=== PATIENT | female | born 1965 | race Two or more races ===

== ENCOUNTER 2021-10-31 14:38 | Outpatient (CLI) | payer OTHER, SELFPAY ==
--- NOTE | 2021-10-31 14:50 | XR_ITS ---
WS: [id number] SCREENING DEXA SCAN Heavy CLINICAL INFORMATION: SCREENING COMPARISON: None. FINDINGS: The L1-L4 bone mineral density measures 1.082 g/cm2. This corresponds to a T score score of -0.8 and Z score of 0.3. Left femoral neck bone mineral density measures 0.792 g/cm2. This corresponds to a T score of -1.7 an d Z score of -0.8. Right femoral neck bone mineral density measures 0.818 g/cm2. This corresponds to a T score -1.5of an d Z score of -0.6. Mean femoral neck bone mineral density measures 0.805 g/cm2. This corresponds to a T score of -1.6 an d Z score of -0.7. XR/XR DEXA axial skeleton* 81073 IMPRESSION: Osteopenia in the femoral necks. Normal bone mineralization lumbar spine. Patient's FRAX calculated 10 year probability for major osteoporotic fracture i s 10.0 % and osteoporotic hip fracture is 1.6%.
== END 2021-10-31 14:39 | disposition home or self-care (01) ==
LOC: RAD 14:41
PROVIDERS: Visit Provider Nurse Practitioner
DX: Z13.820 Encounter for screening for osteoporosis (principal); M85.88 Other specified disorders of bone density and structure, other site
CPT/HCPCS: 77080

== ENCOUNTER → 2021-12-21 08:40 | Outpatient (BNVA) | payer OTHER, SELFPAY | PROVIDERS: PCP Nurse Practitioner; Visit Provider Internal Medicine Rheumatology | DX: M19.041 Primary osteoarthritis, right hand (principal); M19.042 Primary osteoarthritis, left hand; Z79.899 Other long term (current) drug therapy; Z86.19 Personal history of other infectious and parasitic diseases | CPT/HCPCS: 82306; 85651; 86140; 86200; 99204 ==

== ENCOUNTER → 2021-12-28 08:44 | Outpatient (BNVA) | payer OTHER, SELFPAY | PROVIDERS: PCP Nurse Practitioner; Referring Provider Nurse Practitioner; Visit Provider Orthopaedic Surgery | DX: M65.332 Trigger finger, left middle finger (principal); M65.331 Trigger finger, right middle finger; M65.341 Trigger finger, right ring finger | CPT/HCPCS: 20550; 99203; J0702; J3490 ==

== ENCOUNTER 2022-02-02 06:02 | Day surgery (SDC) | payer OTHER, SELFPAY ==
[2022-02-01 11:00] VITALS: BMI 26.0
[2022-02-02 06:30] VITALS: BP 178/92; PULSE 71; RESP 18; TEMP 36.5; O2SAT 98
--- NOTE | 2022-02-02 06:57 | P.HP_ITS ---
Same Day Surgery H&P Indication for Procedure/HPI DATE OF PROCEDURE: February 02, 2022 CHIEF COMPLAINT/INDICATIONFOR SURGICAL PROCEDURE: Right long and ring finger trigger finger here for trigger finger PREOP DIAGNOSIS: Trigger finger Right long and ring finger PLANNED PROCEDURE: Operation Date: 02/02/22 07:00 Proposed Procedures p trigger finger release right ring and long finger/ 11246,M65.331,M65.341(Right) - Oniel Rivera MD 56-year-old female with 1 year history of progressive catching and locking right long and ring finger. Treated with injections on December 28 without improvement. Here for elective long and ring finger trigger finger release ROS Denies any numbness or tingling right hand Medications/Allergies* Home Medications Medication Instructions Recorded Confirmed Type calcium carb-ergocalciferol (vit 2 tab PO DAILY 02/01/22 02/02/22 History D2) 600 mg calcium-200 unit tablet multivitamin 1 tab PO DAILY 02/01/22 02/02/22 History Allergies/Adverse Reactions Allergy/AdvReac Type Severity Reaction Status Date / Time codeine Allergy Unknown unknown Verified 12/28/21 08:48 Penicillins Allergy Unknown Unknown Verified 12/28/21 08:48 Sulfa (Sulfonamide Allergy Unknown unknown Verified 12/28/21 08:48 Antibiotics) meloxicam Allergy ALGY-Rash Verified 02/01/22 10:55 Pertinent History/Comorbid Conditions* Medical History (Updated 12/28/21 @ 09:20 by Oniel Rivera MD) Asthma Hyperlipidemia Inflammatory arthritis Osteoarthritis involving multiple joints on both sides of body Osteoarthritis of hands, bilateral Prediabetes Seasonal allergies Social History Smoking and tobacco status: never smoked Alcohol intake: current Alcohol intake frequency: few times a month Pertinent Exam Findings alert, oriented x 3, clear to auscultation bilaterally, regular rate & rhythm and operative site marked The patient has tenderness over the A1 pulleys of the right long and ring finger. Crepitations are felt over the A1 pulleys of the digits are brought through a full range of motion. Recommendations Surgery/Procedure today Other Plans: I discussed surgical release of trigger fingers with the patient. I told them this has a very high risk of success. I discussed risk of continued pain, stiffness, and unlikely continued triggering. I discussed the close proximity's of blood vessels and nerves with the patient, this will be done in the operating room under loupe magnification. I made them aware unlikely anesthetic risks. They're aware of nonoperative options and seemed expressed good understanding and willingness to proceed. Coding Level of Care Code Acute Medical File Clerk for Sita Zarate
[2022-02-02] MEDS: sodium chloride 0.9% 1,000 ML 30 ML IV (06:59)
[2022-02-02] MEDS: ceFAZolin 2,000 MG in sodium chloride 0.9% (plus) 50 ML 100 MG IV (07:00)
--- NOTE | 2022-02-02 07:24 | ANES.PREANE2 ---
Pre-Anesthetic Assessment Height/Weight: Height 1.51 m Weight 59.421 kg Temp Pulse Resp BP Pulse Ox 97.7 F 71 18 178/92 98 02/02/22 06:30 02/02/22 06:30 02/02/22 06:30 02/02/22 06:30 02/02/22 06:30 Preop Diagnosis: Trigger finger Right long and ring finger Operation Date: 02/02/22 07:00 Proposed Procedures p trigger finger release right ring and long finger/ 60471,M65.331,M65.341(Right) - Oniel Rivera MD Familial anesthetic complications: none Was Beta Nenita taken within 24 hours: N/A Was Clonidine taken within 24 hours: N/A Last intake: Intake Last Liquid Date 02/01/22 Last Liquid Time 18:00 Last Solid Date 02/01/22 Last Solid Time 20:00 Social No alcohol and No tobacco Exam alert, oriented x 3, clear to auscultation bilaterally and regular rate & rhythm Airway Submandibular: within normal limits Cervical ROM: within normal limits Mallampati: Class II History/ROS No significant history except as noted Musc/skel Osteoarthritis/DJD Anesthetic Plan ASA status: 1 Anesthesia: MAC Medications/Allergies Home Medications Medication Instructions Recorded Confirmed Last Taken Type calcium carb-ergocalciferol (vit 2 tab PO DAILY 02/01/22 02/02/22 02/01/22 History D2) 600 mg calcium-200 unit tablet multivitamin 1 tab PO DAILY 02/01/22 02/02/22 02/01/22 History hydrocodone 5 mg-acetaminophen 325 1 tab PO Q4H #10 tab 02/02/22 Unknown Rx mg tablet Allergies Allergy/AdvReac Type Severity Reaction Status Date / Time codeine Allergy Unknown unknown Verified 12/28/21 08:48 Penicillins Allergy Unknown Unknown Verified 12/28/21 08:48 Sulfa (Sulfonamide Allergy Unknown unknown Verified 12/28/21 08:48 Antibiotics) meloxicam Allergy ALGY-Rash Verified 02/01/22 10:55 Current Medications Generic Name Dose Route Start Last Admin Trade Name Freq PRN Reason Stop Dose Admin Sodium Chloride 1,000 mls @ 30 mls/hr 02/02/22 06:45 02/02/22 06:59 Sodium Chloride 0.9% IV 02/03/22 06:44 30 mls/hr .Q24H ANDREW Administration Cefazolin Sodium 2,000 mg/ 50 mls @ 100 mls/hr 02/02/22 07:00 02/02/22 07:08 Sodium Chloride IV 02/02/22 07:29 Infused ONCE ONE Infusion PFSH Anesthesia Medical History Asthma Hyperlipidemia Inflammatory arthritis Osteoarthritis involving multiple joints on both sides of body Osteoarthritis of hands, bilateral Prediabetes Seasonal allergies Social History Smoking and tobacco status: never smoked Alcohol intake: current Alcohol intake frequency: few times a month Data Anesthesia Cardiac Studies: No Data to Display
--- NOTE | 2022-02-02 07:43 | PM.OP ---
Operative Report Date of procedure: February 02, 2022 Pre-op diagnosis: Preop Diagnosis Trigger finger Right long and ring finger Post-op diagnosis: same Procedure done: Trigger finger release right long and right ring finger Surgeon: Oniel Rivera Anesthesia: Nerve Block (Porter block) Estimated blood loss (mL): 2 Tourniquet time (min): 20 Findings: There is degeneration of the A1 pulleys of the long and ring finger but the tendons at that level appeared healthy Condition: stable Disposition: PACU Procedure: The patient's hand was prepped in the usual fashion. A timeout was performed. A transverse incision was made over the level of a 1 kenisha in the palm over a distance of approximately a centimeter over the ring finger under loupe magnification blunt dissection was accomplished down to the A1 kenisha. With adequate visualization a scalpel was used to divide the central 8 mm of that structure. Blunt scissors were then used to extend the release approximately 5 mm proximally and 5 mm distally. Tendons were pulled the road and inspected to assure there health. A transverse incision was made over the level of a 1 kenisha in the palm over a distance of approximately a centimeter over the ring finger under loupe magnification blunt dissection was accomplished down to the A1 kenisha. With adequate visualization a scalpel was used to divide the central 8 mm of that structure. Blunt scissors were then used to extend the release approximately 5 mm proximally and 5 mm distally. Tendons were pulled the road and inspected to assure there health. Skin edges over both incisions were each infiltrated with 3 cc of 0.5%n Marcaine. The skin edges were closed with 3-0 Prolene compressive dressings were applied.
[2022-02-02 07:44] VITALS: BP 149/80; PULSE 60; RESP 16; TEMP 36.3; O2SAT 99
[2022-02-02 07:50] VITALS: BP 166/88; PULSE 65; RESP 18; O2SAT 98
[2022-02-02 07:55] VITALS: BP 176/90; PULSE 63; RESP 18; TEMP 36.2; O2SAT 99
[2022-02-02 08:21] VITALS: BP 188/95; PULSE 65; RESP 18; TEMP 36.2; O2SAT 99
[2022-02-02] MEDS: HYDROcodone-acetaminophen 5-325 mg Tablet 1 TAB PO (08:41)
--- NOTE | 2022-02-02 16:36 | ANE.PACU2 ---
Inpatient post-anesthesia follow up: Airway intact: Yes Vital signs: Temperature 97.2 F Pulse Rate 65 Respiratory Rate 18 Blood Pressure 188/95 Pulse Oximetry 99 Oxygen Delivery Me thod Room Air Oxygen Flow Rate Fraction of Inspir ed Oxygen Hydration adequate: Yes Nausea and vomiting: No Pain level: 1 Mental status: Baseline
== END 2022-02-02 09:00 | disposition home or self-care (01) ==
PROVIDERS: PCP Nurse Practitioner; Visit Provider Orthopaedic Surgery
PROC: (CPT 26055; principal; 2022-02-02 07:00)
DX: M65.331 Trigger finger, right middle finger (principal); M65.341 Trigger finger, right ring finger; E78.5 Hyperlipidemia, unspecified
CPT/HCPCS: 26055 ×2; J2370; J2704; J3010; J3490; J7030

== ENCOUNTER → 2022-02-07 08:55 | Outpatient (BNVA) | payer OTHER, SELFPAY | PROVIDERS: PCP Nurse Practitioner; Visit Provider Nurse Practitioner Family | DX: Z47.89 Encounter for other orthopedic aftercare (principal); Z98.890 Other specified postprocedural states | CPT/HCPCS: 99024 ==

== ENCOUNTER → 2022-02-16 08:50 | Outpatient (BNVA) | payer OTHER, SELFPAY | PROVIDERS: PCP Nurse Practitioner; Visit Provider Nurse Practitioner Family | DX: Z98.890 Other specified postprocedural states (principal) | CPT/HCPCS: 99024 ==

== ENCOUNTER → 2022-05-31 14:57 | Outpatient (BNVA) | payer OTHER, SELFPAY | PROVIDERS: PCP Nurse Practitioner; Referring Provider Nurse Practitioner; Visit Provider Orthopaedic Surgery | DX: M65.332 Trigger finger, left middle finger (principal); M65.342 Trigger finger, left ring finger | CPT/HCPCS: 99213 ==

== ENCOUNTER 2022-08-10 07:28 | Day surgery (SDC) | payer OTHER, SELFPAY ==
[2022-08-09 10:34] VITALS: BMI 27.3
[2022-08-10 07:39] VITALS: BP 140/97; PULSE 72; RESP 18; TEMP 36.4; O2SAT 99
[2022-08-10] MEDS: sodium chloride 0.9% 1,000 ML 30 ML IV (08:00)
--- NOTE | 2022-08-10 08:03 | SUR.PREOP ---
0801 called into OR ROOM 5 regarding pt's allergy to pcn, dr Shipley ordered cefazolin and states that her reaction is rash and tightness in chest and breathing issues, DR SHIPLEY stated that they will give cefazolin in room
--- NOTE | 2022-08-10 08:14 | ANES.PREANE2 ---
Pre-Anesthetic Assessment Height/Weight: Height 1.52 m Weight 63.503 kg Temp Pulse Resp BP Pulse Ox O2 Del Method 97.6 F 72 18 140/97 99 08/10/22 07:39 08/10/22 07:39 08/10/22 07:39 08/10/22 07:39 08/10/22 07:39 08/10/22 07:39 Preop Diagnosis: Left long and ring trigger finger Operation Date: 08/10/22 09:10 Proposed Procedures p trigger finger release left long and ring fingers/ 78127 M65.342(Left) - Oniel Rivera MD Familial anesthetic complications: None Was Beta Nenita taken within 24 hours: N/A Was Clonidine taken within 24 hours: N/A Last intake: Intake Last Liquid Date 08/09/22 Last Liquid Time 18:00 Last Solid Date 08/09/22 Last Solid Time 18:00 Social No alcohol and No tobacco Exam alert, oriented x 3, clear to auscultation bilaterally and regular rate & rhythm Airway Mallampati: Class I Dentition: full Pulmonary Asthma (seasonal - last inhaler use a few weeks ago) Anesthetic Plan ASA status: 2 Anesthesia: MAC Risk of > 500 ml blood loss (7ml/kg in children): No Medications/Allergies Home Medications Medication Instructions Recorded Confirmed Last Taken Type calcium carb-ergocalciferol (vit 2 tab PO DAILY 02/01/22 08/09/22 06/07/22 History D2) 600 mg calcium-200 unit tablet multivitamin 1 tab PO DAILY 02/01/22 08/09/22 08/02/22 History Allergies Allergy/AdvReac Type Severity Reaction Status Date / Time codeine Allergy Intermediate ALGY-Rash Verified 08/10/22 07:37 Penicillins Allergy Unknown Unknown Verified 08/10/22 07:37 Sulfa (Sulfonamide Allergy Unknown unknown Verified 08/10/22 07:37 Antibiotics) meloxicam Allergy ALGY-Rash Verified 08/10/22 07:37 Current Medications Generic Name Dose Route Start Last Admin Trade Name Freq PRN Reason Stop Dose Admin Sodium Chloride 1,000 mls @ 30 mls/hr 08/10/22 07:45 08/10/22 08:00 Sodium Chloride 0.9% IV 08/11/22 07:44 30 mls/hr .Q24H ANDREW Administration PFSH Anesthesia Medical History Asthma Hyperlipidemia Inflammatory arthritis Osteoarthritis involving multiple joints on both sides of body Osteoarthritis of hands, bilateral Prediabetes Seasonal allergies Social History Smoking and tobacco status: former smoker Alcohol intake: current Alcohol intake frequency: few times a month Data Anesthesia Cardiac Studies: No Data to Display
--- NOTE | 2022-08-10 09:55 | W.PM.OPSFHP ---
Same Day Surgery H&P Indication for Procedure/HPI DATE OF PROCEDURE: August 10, 2022 CHIEF COMPLAINT/INDICATIONFOR SURGICAL PROCEDURE: Left long and ring finger trigger finger PREOP DIAGNOSIS: Left long and ring trigger finger PLANNED PROCEDURE: Operation Date: 08/10/22 09:10 Proposed Procedures p trigger finger release left long and ring fingers/ [id number] M65.342(Left) - Oniel Rivera MD 56-year-old female with triggering in the left long and ring finger finger early this year. She underwent an injection in the long finger A1 kenisha without significant improvement. She describes difficulty reaching a cup Cleek clenched fist and can only forcibly extend her long finger with a palpable pop at the base of her long finger. She describes difficulty with gripping and grasping. She is here for a left long ring finger trigger finger release Medications/Allergies* Home Medications Medication Instructions Recorded Confirmed Type calcium carb-ergocalciferol (vit 2 tab PO DAILY 02/01/22 08/09/22 History D2) 600 mg calcium-200 unit tablet multivitamin 1 tab PO DAILY 02/01/22 08/09/22 History Allergies/Adverse Reactions Allergy/AdvReac Type Severity Reaction Status Date / Time codeine Allergy Intermediate ALGY-Rash Verified 08/10/22 07:37 Penicillins Allergy Unknown Unknown Verified 08/10/22 07:37 Sulfa (Sulfonamide Allergy Unknown unknown Verified 08/10/22 07:37 Antibiotics) meloxicam Allergy ALGY-Rash Verified 08/10/22 07:37 Current Medications: Generic Name Dose Route Start Last Admin Trade Name Freq PRN Reason Stop Dose Admin Sodium Chloride 1,000 mls @ 30 mls/hr 08/10/22 07:45 08/10/22 08:00 Sodium Chloride 0.9% IV 08/11/22 07:44 30 mls/hr .Q24H ANDREW Administration Pertinent History/Comorbid Conditions* Medical History (Updated 12/28/21 @ 09:20 by Oniel Rivera MD) Asthma Hyperlipidemia Inflammatory arthritis Osteoarthritis involving multiple joints on both sides of body Osteoarthritis of hands, bilateral Prediabetes Seasonal allergies Social History Smoking and tobacco status: former smoker Alcohol intake: current Alcohol intake frequency: few times a month Pertinent Exam Findings procedure specific exam findings HEAD: Normocephalic/atraumatic. NECK: Soft supple nontender. HEART: Normal heart sounds, regular rhythm. CHEST: Clear to auscultation. ABDOMEN: Soft nontender nondistended.? Left ring and long trigger finger She has tenderness over the left long and ring finger A1 pulleys. She cannot quite reach a complete clenched fist with the long and ring finger but can completely extend them. No triggering is identified over the A1 pulleys Sensation is intact to light touch Recommendations Surgery/Procedure today Coding Level of Care Code Acute Automotive Fuel Injection Servicer for Sita Zarate
[2022-08-10] MEDS: ceFAZolin 2,000 MG in sodium chloride 0.9% (plus) 50 ML 100 MG IV (10:10)
--- NOTE | 2022-08-10 10:49 | PM.OP ---
Operative Report Date of procedure: August 10, 2022 Pre-op diagnosis: Preop Diagnosis Left long and ring trigger finger Post-op diagnosis: same Procedure done: Right long and ring finger trigger finger release Pathology: none sent Surgeon: Oniel Rivera Anesthesia: MAC and Local Estimated blood loss (mL): 2 Tourniquet time (min): 8 Complications: None Findings: No masses or degeneration are seen at the A1 pulleys of the left long or ring finger Condition: stable Disposition: PACU Procedure: The patient's hand was prepped in the usual fashion. Sedation was provided by anesthesia. Proximately 2 cm were made in the cyst skin overlying the A1 kenisha of both the long and ring fingers. The arm was exsanguinated and tourniquet inflated 250 mm. A timeout was performed. I transverse incision was made over the level of a 1 kenisha in the palm in line with the distal flexion crease over the long finger. Over a distance of approximately a centimeter and a half. Under loupe magnification blunt dissection was accomplished down to the A1 kenisha. With adequate visualization a scalpel was used to divide the central 8 mm of that structure. Blunt scissors were then used to extend the release approximately 5 mm proximally and 5 mm distally. A second centimeter and a half incision was made over the ring finger along the flexion crease in an identical fashion the A1 kenisha of the ring finger released. The skin edges were closed with 3-0 Prolene compressive dressings were applied.
[2022-08-10 10:53] VITALS: BP 134/75; PULSE 65; RESP 18; TEMP 36.3; O2SAT 100
[2022-08-10 10:55] VITALS: BP 143/75; PULSE 69; RESP 16; O2SAT 100
[2022-08-10 11:01] VITALS: BP 146/79; PULSE 67; RESP 18; TEMP 36.2; O2SAT 100
[2022-08-10 11:04] VITALS: BP 146/80; PULSE 70; RESP 17; TEMP 36.6; O2SAT 99
--- NOTE | 2022-08-10 11:12 | SUR.PHASEII ---
ROM , SENSATION AND GOOD CAP REFILL OF FINGERS LEFT HAND.
[2022-08-10 11:45] VITALS: BP 148/96; PULSE 65; RESP 14; TEMP 36.6; O2SAT 97
--- NOTE | 2022-08-10 12:53 | ANE.PACU2 ---
Inpatient post-anesthesia follow up: Airway intact: Yes Vital signs: Temperature 98 F Pulse Rate 70 Respiratory Rate 17 Blood Pressure 146/80 Pulse Oximetry 99 Oxygen Delivery Me thod Room Air Oxygen Flow Rate Fraction of Inspir ed Oxygen Hydration adequate: Yes Nausea and vomiting: No Pain level: 1 Mental status: Baseline
== END 2022-08-10 12:15 | disposition home or self-care (01) ==
PROVIDERS: PCP Nurse Practitioner; Visit Provider Orthopaedic Surgery
PROC: (CPT 26055; principal; 2022-08-10 09:10)
DX: M65.332 Trigger finger, left middle finger (principal); M65.342 Trigger finger, left ring finger; J45.909 Unspecified asthma, uncomplicated; E78.5 Hyperlipidemia, unspecified; Z87.891 Personal history of nicotine dependence
CPT/HCPCS: 26055 ×2; J0690; J2250; J2704; J3010; J3490; J7030

== ENCOUNTER → 2022-08-15 09:28 | Outpatient (BNVA) | payer OTHER, SELFPAY | PROVIDERS: PCP Nurse Practitioner; Visit Provider Nurse Practitioner Family | DX: Z98.890 Other specified postprocedural states (principal) | CPT/HCPCS: 99024 ==

== ENCOUNTER → 2022-08-22 07:54 | Outpatient (BNVA) | payer OTHER, SELFPAY | PROVIDERS: PCP Nurse Practitioner; Visit Provider Nurse Practitioner Family | DX: Z98.890 Other specified postprocedural states (principal) | CPT/HCPCS: 99024; 99213 ==

== ENCOUNTER 2022-10-17 11:46 | Emergency (ER) | payer OTHER, SELFPAY ==
[2022-10-17 11:55] VITALS: BP 164/97; PULSE 75; RESP 18; TEMP 36.7; O2SAT 98
--- NOTE | 2022-10-17 13:51 | W.ED.SOB ---
HPI - SOB/Dyspnea General: Chief Complaint: Shortness of Breath/Dyspnea Stated Complaint: sob Time Seen by Provider: 10/17/22 13:36 Source: patient Mode of arrival: ambulatory Limitations: no limitations History of Present Illness: HPI Narrative: This 57-year-old female with a history of asthma presents to the ER with intermittent shortness of breath that has been going on for few weeks now. Patient reports having allergy symptoms few weeks ago and since then [facility] during which she was prescribed Z-Jorge Luis and albuterol treatment, followed by Medrol Dosepak and doxycycline. Currently, she does breathing treatments every 6 hours which tends to help but usually in the evenings, her shortness of breath worsens. She is a non-smoker, denies fever and has no other systemic symptoms. Oxygen saturation is normal on room air. Review of Systems General: Reports: 10 or more systems reviewed and unremarkable except in HPI and below Resp: Reports: dyspnea (Intermittent), non-productive cough and wheezing (Intermittent) [facility] PFSH: Medical History Asthma Hyperlipidemia Inflammatory arthritis Osteoarthritis involving multiple joints on both sides of body Osteoarthritis of hands, bilateral Prediabetes Seasonal allergies Social History Smoking and tobacco status: former smoker Alcohol intake: current Alcohol intake frequency: few times a month Physical Exam Const: COMMON NORMALS: no acute distress and no limitations HENMT: COMMON NORMALS: normocephalic HEAD & SCALP: normocephalic Chest: COMMONS NORMALS: normal inspection of the chest Resp: COMMON NORMALS: normal respiratory effort, No retractions, No use of accessory muscles and clear to auscultation bilaterally AUSCULTATION: clear to auscultation bilaterally Cardio: COMMON NORMALS: regular rate, regular rhythm and No murmurs present (Cardio) RATE: regular rate RHYTHM: regular rhythm GI: COMMON NORMALS: Normal to inspection, nondistended, normoactive bowel sounds present and non-tender Extremity: GENERAL: Yes normal exam except as noted Course Vital Signs: Vital signs: Vital Signs Temperature 98.1 F 10/17/22 11:55 Pulse Rate 69 10/17/22 16:54 Respiratory Rate 18 10/17/22 11:55 Blood Pressure 156/93 10/17/22 16:54 Pulse Oximetry 100 10/17/22 16:54 Oxygen Delivery Me thod 10/17/22 16:54 MDM - SOB/Dyspnea Medical Decision Making Medical decision making: Patient has a history of asthma and reports having allergy type symptoms few weeks ago. She uses her inhalers and has been treated with antibiotics and steroids. She presents to the ER stating that during the evenings, her symptoms seem to get worse. Otherwise, patient appears clinically stable. Chest is clear on auscultation and oxygen saturation is 100% on room air. She is in no acute distress and completed blood tests are unremarkable. Chest x-ray is negative for any acute intracranial process. There is no indication to admit her at this time, she was advised to continue her inhaler treatments and finish out the course of steroids she has. She was given a prescription for Tessalon Perles and advised to follow-up with her primary care provider. Return instructions provided. Lab Data 10/17/22 14:50 10/17/22 14:50 Labs/Radiology: Radiology Impressions Chest X-Ray 10/17/22 14:18 IMPRESSION: Unremarkable frontal portable chest x-ray. Laboratory Results WBC 10.9 10^3/uL (4.0-10.0) H 10/17/22 14:50 RBC 4.59 10^6/uL (4.1-5.3) 10/17/22 14:50 Hgb 14.4 g/dL (11.5-15.3) 10/17/22 14:50 Hct 44.0 % (37.0-47.0) 10/17/22 14:50 MCV 95.9 fl (81-99) 10/17/22 14:50 MCH 31.4 pg (28.0-34.0) 10/17/22 14:50 MCHC 32.7 g/dL (30.0-36.0) 10/17/22 14:50 RDW 12.5 % (12.1-15.1) 10/17/22 14:50 Plt Count 351 10^3/cmm (130-400) 10/17/22 14:50 MPV 9.2 fL (7.4-10.4) 10/17/22 14:50 Neut % (Auto) 61.9 % 10/17/22 14:50 Lymph % (Auto) 30.6 % 10/17/22 14:50 Stark % (Auto) 5.8 % 10/17/22 14:50 Eos % (Auto) 0.8 % 10/17/22 14:50 Baso % (Auto) 0.5 % 10/17/22 14:50 Neut # (Auto) 6.74 10^3/uL (1.8-7.7) 10/17/22 14:50 Lymph # (Auto) 3.3 10^3/uL (0.8-4.8) 10/17/22 14:50 Stark # (Auto) 0.6 10^3/uL (0.2-0.9) 10/17/22 14:50 Eos # (Auto) 0.1 10^3/uL (0.0-0.8) 10/17/22 14:50 Baso # (Auto) 0.1 10^3/uL (0.0-0.1) 10/17/22 14:50 Nucleated RBC % (auto) 0 % 10/17/22 14:50 Nucleated RBCs # 0.0 /100WBC 10/17/22 14:50 Sodium 140 mmol/L (136-145) 10/17/22 14:50 Potassium 4.2 mmol/L (3.5-5.1) 10/17/22 14:50 Chloride 103 mmol/L (98-107) 10/17/22 14:50 Carbon Dioxide 27 mmol/L (22-29) 10/17/22 14:50 Anion Gap 14.2 (5-19) 10/17/22 14:50 BUN 14 mg/dL (6-20) 10/17/22 14:50 Creatinine 0.7 mg/dL (0.5-0.9) 10/17/22 14:50 GFR Calculation 85.6 mL/min (90-130) L 10/17/22 14:50 Glucose 96 mg/dL (65-115) 10/17/22 14:50 Calculated Osmolality 290 mOsm/kg (285-295) 10/17/22 14:50 Calcium 9.6 mg/dL (8.5-10.5) 10/17/22 14:50 Total Bilirubin 0.6 mg/dL (0.15-1.2) 10/17/22 14:50 AST 12 U/L (0-32) 10/17/22 14:50 ALT 17 U/L (0-33) 10/17/22 14:50 Alkaline Phosphatase 72 U/L (35-105) 10/17/22 14:50 Total Protein 7.9 g/dL (6.6-8.7) 10/17/22 14:50 Albumin 4.4 g/dL (3.5-5.2) 10/17/22 14:50 Globulin 3.5 g/dL (1.3-4.6) 10/17/22 14:50 Discharge Plan Discharge Patient Disposition: Home Clinical Impression: Asthma Condition: Stable Prescriptions: New benzonatate 100 mg capsule 100 mg PO TID Qty: 20 0RF No Action multivitamin Tablet 1 tab PO DAILY doxycycline hyclate 100 mg capsule 100 mg PO BID albuterol sulfate 2.5 mg /3 mL (0.083 %) solution for nebulization 2.5 mg inhalation Q6H PRN (Reason: Shortness Of Breath Or Wheezing) methylprednisolone 4 mg tablets,dose pack See Rx Instructions .ROUTE .COMPLEX Rx Instructions: as directed albuterol sulfate 90 mcg/actuation HFA aerosol inhaler 1 puff INHALATION Q6H PRN (Reason: Shortness Of Breath Or Wheezing) Claritin 10 mg Tablet 10 mg PO DAILY Calcium 500 With D 500 mg-10 mcg (400 unit) Tablet 1 tab PO DAILY Discharge Orders: Discharge ED (Routine); Ordered 10/17/22 Ordered By: Isamar Null Referrals: Freda Vitale FNP [Primary Care Provider] - Discharge Diet: Usual diet Discharge Activity: Resume usual activity Patient Instructions: Opioid Safety, Pain Management Activity Restrictions/Additional Instructions: Continue using the inhalers every 4-6 hours/as needed for shortness of breath. Finish up the course of prednisone you already have. Take Tessalon Perles as prescribed. Maintain adequate fluid intake. Follow-up with your primary care physician in 3 to 5 days for reevaluation. Return with new or worsening symptoms. Coding Level of Care Code ED Supervisor Electrolytic Tinning for Sita Zarate
--- NOTE | 2022-10-17 14:18 | XR_ITS ---
WS: [id number] EXAMINATION: XR chest 1V portable [id number] REASON FOR EXAM: Intermittent shortness of breath COMPARISON: None available. ORDER DATE: 10/17/2022 2:20 PM TECHNIQUE: A single, portable frontal chest x-ray was obtained. X-RAY FINDINGS: The lungs are clear. Pleural spaces are clear. No pleural effusions or pneumothorax. Cardiomediastinal silhouette is normal. No evidence for pulmonary edema. Soft tissue and osseous structures are unremarkable. No tubes or lines are present. XR/XR chest 1V portable [id number] IMPRESSION: Unremarkable frontal portable chest x-ray.
[2022-10-17 14:45] VITALS: BP 149/95; PULSE 66; O2SAT 99
[2022-10-17 15:16] LABS: Basophils # 0.1 10^3/uL (0.0-0.1); Basophils % 0.5 %; Eosinophils # 0.1 10^3/uL (0.0-0.8); Eosinophils % 0.8 %; Hemoglobin 14.4 g/dL (11.5-15.3); Lymphocytes # 3.3 10^3/uL (0.8-4.8); Lymphocytes % 30.6 %; Mean Corpuscular HGB Conc 32.7 g/dL (30.0-36.0); Mean Corpuscular Hemoglobin 31.4 pg (28.0-34.0); Mean Corpuscular Volume 95.9 fl (81-99); Mean Platelet Volume 9.2 fL (7.4-10.4); Monocytes # 0.6 10^3/uL (0.2-0.9); Monocytes % 5.8 %; Neutrophils # 6.74 10^3/uL (1.8-7.7); Neutrophils % 61.9 %; Nucleated Red Blood Cells % 0 %; Platelet Count 351 10^3/cmm (130-400); Red Blood Count 4.59 10^6/uL (4.1-5.3); Red Cell Distribution Width 12.5 % (12.1-15.1); White Blood Count 10.9 10^3/uL (4.0-10.0)
[2022-10-17 15:27] LABS: Alanine Aminotransferase 17 U/L (0-33); Albumin Level 4.4 g/dL (3.5-5.2); Alkaline Phosphatase 72 U/L (35-105); Anion Gap 14.2 (5-19); Aspartate Amino Transferase 12 U/L (0-32); Blood Urea Nitrogen 14 mg/dL (6-20); Calcium 9.6 mg/dL (8.5-10.5); Carbon Dioxide 27 mmol/L (22-29); Chloride 103 mmol/L (98-107); Creatinine Clr Calc Pharmacy 74.4722; Globulin 3.5 g/dL (1.3-4.6); Glomerular Filtration Rate 85.6 mL/min (90-130); Glucose 96 mg/dL (65-115); Osmolality Calculated 290 mOsm/kg (285-295); Potassium 4.2 mmol/L (3.5-5.1); Sodium 140 mmol/L (136-145); Total Bilirubin 0.6 mg/dL (0.15-1.2); Total Protein 7.9 g/dL (6.6-8.7)
[2022-10-17 15:43] VITALS: BP 141/82; PULSE 69; O2SAT 98
[2022-10-17 16:54] VITALS: BP 156/93; PULSE 69; O2SAT 100
[2022-10-17 17:11] VITALS: BP 159/103; PULSE 69; O2SAT 100
== END 2022-10-17 17:12 | disposition home or self-care (01) ==
PROVIDERS: Emergency Provider Family Medicine; PCP Nurse Practitioner
DX: J45.909 Unspecified asthma, uncomplicated (principal); E78.5 Hyperlipidemia, unspecified; Z87.891 Personal history of nicotine dependence
CPT/HCPCS: 36415; 71045; 80053; 85025; 99284

== ENCOUNTER 2022-11-14 11:15 | Outpatient (CLI) | payer OTHER, SELFPAY ==
--- NOTE | 2022-11-14 11:20 | MM_ITS ---
WS: [id number] BILATERAL 3D TOMOSYNTHESIS DIGITAL SCREENING MAMMOGRAPHY WITH CAD CLINICAL INFORMATION: SCREENING HISTORY: Screening mammogram. No current complaints. COMPARISON: 2020 TECHNIQUE: Bilateral CC and MLO views. FINDINGS: The breasts are composed of heterogeneous fibroglandular density tissue, which can limit the detectio n of small underlying mass lesions. No suspicious mass, asymmetry, calcifications, or architectural d istortion. No evidence of malignancy. Vascular calcification. MM/[id number] IMPRESSION: BI-RADS: 2-Benign FOLLOW UP: 1 Year Follow-up Recommend return to annual screening mammography.
== END 2022-11-14 11:16 | disposition home or self-care (01) ==
LOC: RAD 11:17
PROVIDERS: PCP Nurse Practitioner; Visit Provider Nurse Practitioner
DX: Z12.31 Encounter for screening mammogram for malignant neoplasm of breast (principal)
CPT/HCPCS: 77063; 77067

== ENCOUNTER 2023-11-28 08:22 | Outpatient (CLI) | payer OTHER, SELFPAY ==
--- NOTE | 2023-11-28 08:26 | MM_ITS ---
WS: [id number] BILATERAL SCREENING DIGITAL TOMOSYNTHESIS MAMMOGRAM WITH CAD HISTORY: SCREENING COMPARISON: 11/14/2022, 11/01/2021 and 12/13/2020 Bilateral CC and MLO views with tomosynthesis and synthetic mammography submitted. Computer aided det ection analyzed. Breast composition: There are scattered areas of fibroglandular density. No suspicious masses, microc alcifications or architectural distortion. MM/[id number] IMPRESSION: BI-RADS: 1-Negative FOLLOW UP: 1 Year Follow-up
== END 2023-11-28 08:23 | disposition home or self-care (01) ==
LOC: RAD 08:22
PROVIDERS: PCP Nurse Practitioner; Visit Provider Nurse Practitioner
DX: Z12.31 Encounter for screening mammogram for malignant neoplasm of breast (principal); R92.323 Mammographic fibroglandular density, bilateral breasts
CPT/HCPCS: 77063; 77067

== ENCOUNTER → 2023-12-19 13:58 | Outpatient (BNVA) | payer OTHER, SELFPAY | PROVIDERS: PCP Nurse Practitioner; Referring Provider Nurse Practitioner; Visit Provider Surgery | DX: Z12.11 Encounter for screening for malignant neoplasm of colon (principal) | CPT/HCPCS: 99203 ==

== ENCOUNTER 2024-01-08 06:45 | Day surgery (SDC) | payer OTHER, SELFPAY ==
--- NOTE | 2024-01-08 06:04 | P.HPUD_ITS ---
Surgery/Procedure H&P Update DATE OF PROCEDURE: January 08, 2024 DATE H&P PERFORMED: 12/19/23 H&P UPDATE INFORMATION: I have reviewed H&P completed within last 30 days, I have examined patient prior to procedure, No changes to prior documentation and H&P is in [facility] EMR on date indicated PLANNED PROCEDURE: Operation Date: 01/08/24 07:40 Proposed Procedures p Colonoscopy 40948, Z12.11(Not Applicable) - Imtiaz Donato MD
--- NOTE | 2024-01-08 06:04 | W.PM.OPSUD ---
Surgery/Procedure H&P Update DATE OF PROCEDURE: January 08, 2024 DATE H&P PERFORMED: 12/19/23 H&P UPDATE INFORMATION: I have reviewed H&P completed within last 30 days, I have examined patient prior to procedure, No changes to prior documentation and H&P is in [facility] EMR on date indicated PLANNED PROCEDURE: Operation Date: 01/08/24 07:40 Proposed Procedures p Colonoscopy [id number], Z12.11(Not Applicable) - Imtiaz Donato MD
[2024-01-08 07:00] VITALS: BP 140/88; PULSE 72; RESP 16; TEMP 36.1; O2SAT 97; BMI 30.2
[2024-01-08] MEDS: sodium chloride 0.9% 1,000 ML 30 ML IV (07:08)
--- NOTE | 2024-01-08 07:26 | ANES.PREANE2 ---
Pre-Anesthetic Assessment Height/Weight: Height 1.52 m Weight 70.307 kg Temp Pulse Resp BP Pulse Ox O2 Del Method 97.0 F L 72 16 140/88 97 Room Air 01/08/24 07:00 01/08/24 07:00 01/08/24 07:00 01/08/24 07:00 01/08/24 07:00 01/08/24 07:00 Preop Diagnosis: screening Operation Date: 01/08/24 07:40 Proposed Procedures p Colonoscopy [id number], Z12.11(Not Applicable) - Imtiaz Donato MD Was Beta Nenita taken within 24 hours: N/A Was Clonidine taken within 24 hours: N/A Last intake: Intake Last Liquid Date 01/07/24 Last Liquid Time 20:00 Last Solid Date 01/06/24 Last Solid Time 17:00 Social Alcohol (glass of wine on the weekend) and No tobacco Exam alert, oriented x 3, clear to auscultation bilaterally and regular rate & rhythm Airway Submandibular: within normal limits Cervical ROM: within normal limits Mallampati: Class II Dentition: full Pulmonary Asthma CV/HEM None reported None reported Hepatic Hepatitis (Hep C treated in 2007 no issues) GI None reported Metabolic Hyperlipidemia Musc/skel Osteoarthritis/DJD Neuropsych None reported Anesthetic Plan ASA status: 2 Anesthesia: MAC Risk of > 500 ml blood loss (7ml/kg in children): No Medications/Allergies Home Medications Medication Instructions Recorded Confirmed Last Taken Type multivitamin 1 tab PO DAILY 02/01/22 01/03/24 01/06/24 History albuterol sulfate 90 mcg/actuation 1 puff inhalation Q6H PRN 10/17/22 01/08/24 09/10/23 History aerosol inhaler Shortness Of Breath Or Wheezing calcium carbonate 500 mg-vitamin 1 tab PO DAILY 10/17/22 01/03/24 01/06/24 History D3 10 mcg (400 unit) tablet (Calcium 500 With D) loratadine 10 mg tablet (Claritin) 10 mg PO DAILY 10/17/22 01/03/24 01/06/24 History fluticasone propionate 250 1 inh inhalation BID 12/19/23 01/08/24 01/07/24 History mcg/actuation blister powder for inhalation rosuvastatin 40 mg tablet 40 mg PO DAILY 12/19/23 01/03/24 01/06/24 History Allergies Allergy/AdvReac Type Severity Reaction Status Date / Time codeine Allergy Intermediate ALGY-Rash Verified 12/19/23 13:59 Penicillins Allergy Unknown Unknown Verified 12/19/23 13:59 Sulfa (Sulfonamide Allergy Unknown unknown Verified 12/19/23 13:59 Antibiotics) meloxicam Allergy ALGY-Rash Verified 12/19/23 13:59 Current Medications Generic Name Dose Route Start Last Admin Trade Name Freq PRN Reason Stop Dose Admin Sodium Chloride 1,000 mls @ 30 mls/hr 01/08/24 07:00 01/08/24 07:08 Sodium Chloride 0.9% IV 01/09/24 06:59 30 mls/hr .Q24H ANDREW Administration PFSH Anesthesia Medical History Osteoarthritis of hands, bilateral Inflammatory arthritis Asthma Prediabetes Hyperlipidemia Seasonal allergies Osteoarthritis involving multiple joints on both sides of body Social History Smoking and tobacco/nicotine status: former use of tobacco/nicotine Alcohol intake: current Alcohol intake frequency: few times a month Data Anesthesia Cardiac Studies: No Data to Display
[2024-01-08 08:21] VITALS: BP 106/63; PULSE 63; RESP 12; TEMP 36.4; O2SAT 97
[2024-01-08 08:31] VITALS: BP 117/70; PULSE 61; RESP 14; O2SAT 97
[2024-01-08 08:41] VITALS: BP 120/81; PULSE 63; RESP 18; O2SAT 98
--- NOTE | 2024-01-08 14:05 | ANE.PACU2 ---
Inpatient post-anesthesia follow up: Airway intact: Yes Vital signs: Temperature 97.5 F Pulse Rate 63 Respiratory Rate 18 Blood Pressure 120/81 Pulse Oximetry 98 Oxygen Delivery Me thod Room Air Oxygen Flow Rate Fraction of Inspir ed Oxygen Hydration adequate: Yes Nausea and vomiting: No Pain level: 2 Mental status: Baseline
== END 2024-01-08 09:13 | disposition home or self-care (01) ==
PROVIDERS: PCP Nurse Practitioner; Visit Provider Surgery
PROC: 0DJD8ZZ Inspection of Lower Intestinal Tract, Via Natural or Artificial Opening Endoscopic (ICD-10-PCS; CPT 45378; principal; 2024-01-08 07:40)
DX: Z12.11 Encounter for screening for malignant neoplasm of colon (principal); K64.8 Other hemorrhoids; J45.909 Unspecified asthma, uncomplicated; Z86.19 Personal history of other infectious and parasitic diseases; E78.5 Hyperlipidemia, unspecified; R73.03 Prediabetes
CPT/HCPCS: 45378; J2704; J7030

== ENCOUNTER 2024-11-11 13:48 | Outpatient (CLI) | payer OTHER, SELFPAY ==
--- NOTE | 2024-11-11 13:50 | XR_ITS ---
WS: [id number] SCREENING DEXA SCAN [employer] CLINICAL INFORMATION: SCREENING/HIGH RISK/HIP PAIN COMPARISON: 2021 FINDINGS: The L1-L4 bone mineral density measures 1.069 g/cm2. This corresponds to a T score score of -0.9 and Z score of 0.1. Left femoral neck bone mineral density measures 0.791 g/cm2. This corresponds to a T score of -1.7 and Z score of -0.9. Right femoral neck bone mineral density measures 0.800 g/cm2. This corresponds to a T score -1.6of and Z score of -0.9. Mean femoral neck bone mineral density measures 0.796 g/cm2. This corresponds to a T score of -1.7 and Z score of -0.9. XR/XR DEXA axial skeleton* [id number] IMPRESSION: Normal bone mineralization lumbar spine. Osteopenia femoral necks. Patient's FRAX calculated 10 year probability for major osteoporotic fracture i s 11.5% and osteoporotic hip fracture is 2.1%. Bone mineral density lumbar spine decrease -1.2% Bone mineral density femoral necks decreased -1.1%
== END 2024-11-11 13:49 | disposition home or self-care (01) ==
PROVIDERS: PCP Nurse Practitioner; Visit Provider Nurse Practitioner
DX: Z78.0 Asymptomatic menopausal state (principal); M85.88 Other specified disorders of bone density and structure, other site
CPT/HCPCS: 77080

== ENCOUNTER 2024-12-03 08:03 | Outpatient (CLI) | payer OTHER, SELFPAY ==
--- NOTE | 2024-12-03 08:08 | MM_ITS ---
WS: [id number] BILATERAL SCREENING DIGITAL TOMOSYNTHESIS MAMMOGRAM WITH CAD HISTORY: SCREENING COMPARISON: 11/28/2023, 11/14/2022 Bilateral CC and MLO views with tomosynthesis and synthetic mammography submitted. Computer aided detection analyzed. Breast composition: There are scattered areas of fibroglandular density. No suspicious masses, microcalcifications or architectural distortion. Benign calcifications in each breast. MM/MM scr BI tomosynthesis [id number] IMPRESSION: BI-RADS: 2 - Benign. FOLLOW UP: 1 Year Follow-up
== END 2024-12-03 08:04 | disposition home or self-care (01) ==
PROVIDERS: PCP Nurse Practitioner; Visit Provider Nurse Practitioner
DX: Z12.31 Encounter for screening mammogram for malignant neoplasm of breast (principal); R92.323 Mammographic fibroglandular density, bilateral breasts; R92.1 Mammographic calcification found on diagnostic imaging of breast
CPT/HCPCS: 77063; 77067

== ENCOUNTER 2025-04-27 12:25 | Outpatient (CLI) | payer OTHER, SELFPAY ==
--- NOTE | 2025-04-27 12:29 | CT_ITS ---
WS: [id number] CT chest w con* [id number] HISTORY: PERSISENT COUGH FOR ONE YEAR WITH SPUTUM PRODUCTION dyspnea TECHNIQUE: Axial imaging performed through the thorax. Coronal and sagittal reformats are submitted. All CT scans at [facility] use at least one of these dose optimization techniques: automated exposure control; mA and/or kV adjustment per patient size (includes targeted exams where dose is matched to clinical indication); or iterative reconstruction. CONTRAST: Omnipaque 350; 100 mL IV. DLP: 285.58 mGy.cm COMPARISON: None available. Lungs and central airway: Lungs are clear. No pneumonia. No bronchitis or bronchial wall thickening. Pleura: Normal. No pleural effusion. Heart and pericardium: Normal size heart with no pericardial effusion. Mediastinum and eric: No mediastinum or hilar adenopathy. Vessels: Normal size aortic and pulmonary artery. No coronary artery calcifications. Chest wall and lower neck: No soft tissue masses. Upper abdomen: Small hiatal hernia. No adrenal mass. Osseous structures: No destructive process. CT/CT chest w con* [id number] IMPRESSION: 1. No pneumonia, pulmonary mass or nodule. 2. No bronchitis. 3. No mediastinal or hilar adenopathy. 4. Normal size heart.
== END 2025-04-27 12:26 | disposition home or self-care (01) ==
LOC: RAD 12:26
PROVIDERS: PCP Nurse Practitioner; Visit Provider Nurse Practitioner
DX: R06.00 Dyspnea, unspecified (principal)
CPT/HCPCS: 71260

== ENCOUNTER → 2025-06-11 14:21 | Outpatient (BNVA) | payer OTHER, SELFPAY | PROVIDERS: PCP Nurse Practitioner; Referring Provider Nurse Practitioner; Visit Provider Internal Medicine | DX: J45.51 Severe persistent asthma with (acute) exacerbation (principal); J30.89 Other allergic rhinitis; T78.40XA Allergy, unspecified, initial encounter; X58.XXXA Exposure to other specified factors, initial encounter; J44.9 Chronic obstructive pulmonary disease, unspecified | CPT/HCPCS: 36415; 82103; 85025; 86003; 99204; Q3014 ==

== ENCOUNTER 2025-06-16 14:26 | Outpatient (CLI) | payer OTHER, SELFPAY | END 2025-06-16 14:27 | disposition home or self-care (01) | LOC: LAB 14:27 | PROVIDERS: PCP Nurse Practitioner; Visit Provider Internal Medicine | DX: R76.89 Other specified abnormal immunological findings in serum (principal) | CPT/HCPCS: 36415; 87305 ==